=== PATIENT | male | born 1960 | race Native Hawaiian/Other Pacific Islander ===

== ENCOUNTER 2017-02-06 19:55 | Observation (INO) | payer OTHER ==
[2017-02-06] VITALS (7 sets, daily range): BP systolic 135–178; BP diastolic 70–103; PULSE 74–85; RESP 18; TEMP 98.5; O2SAT 98–99
[~2017-02-06] VITALS: Ht 165.1 cm; Wt 87.8 kg
[2017-02-06] MEDS ORDERED: ASPIRIN 81 MG CHEW TAB PO ONE (20:15)
[2017-02-06] MEDS ORDERED: SODIUM CHLORIDE 0.9% FLUSH 10 ML FLUSH IVF PRN ×2 (20:15→22:15)
--- NOTE | 2017-02-06 20:18 | PD ---
HPI Chief Complaint: Chest Pain Time Seen by Provider: 20:10 Travel History International Travel<30 days: No Contact w/Intl Traveler<30days: No Traveled to known affect area: No History of Present Illness HPI 56-year-old male presents to the emergency department from urgent care by private vehicle for evaluation of chest pressure and EKG with right bundle branch block pattern after being evaluated for complaint of persistent cough. Patient reports that he has no chest pain or chest pressure. Patient rates pain 0/10 in intensity. Patient denies shortness of breath or pleuritic pain. Patient has history of hypertension and admits to tobacco use. No bruit premature onset heart disease in his family and denies history of CAD, dyslipidemia, or diabetes. Patient reports developing respiratory illness and completed a course of amoxicillin but due to persistent symptoms was given a Z- Ian which she completed but had persistent cough so return to the urgent care because he continued to have cough and was not feeling well and noticed when he would rotate right or left while resting supine would develop midline chest discomfort when he was rotating or squeezing his chest wall. Patient denied any referred neck jaw fracture shoulder arm pain. No report of recent long distance travel or protracted bedrest or surgical procedure and denies lower extremity pain or swelling. Patient was given one 81 mg aspirin prior to being referred to the emergency department from the urgent care. [facility] Past Medical History Narrative Medical Hypertension; no surgery; tobacco use; family history no premature onset heart disease; Nursing notes reviewed Social History Tobacco Use: Yes Allergies-Medications (Allergen,Severity, Reaction): Coded Allergies: No Known Allergies (Unverified , 02/06/17) Reported Meds & Prescriptions Reported Meds & Active Scripts Active Reported Lisinopril 10 Mg Tab 10 Mg PO DAILY Narrative Medication Blood pressure medication once daily Review of Systems Except as stated in HPI: all other systems reviewed are Neg General / Constitutional: No: Fever, Chills HENT: Positive: Congestion Cardiovascular: Positive: Chest Pain or Discomfort (with movement or rotating the torso right to left or left to right), No: Palpitations, Diaphoresis, Syncope, Dyspnea on exertion, Edema Respiratory: Positive: Cough, No: Shortness of Breath, Wheezing, Pleuritic Pain Gastrointestinal: No: Nausea, Vomiting, Abdominal Pain Genitourinary: No: Flank Pain Musculoskeletal: No: Myalgias, Arthralgias, Cramping, Edema Skin: No Rash Neurologic: No: Weakness Psychiatric: No: Anxiety Endocrine: No: Heat Intolerance Hematologic/Lymphatic: No: Easy Bruising Physical Exam Narrative GENERAL: Well-developed well-nourished male in no acute distress no respiratory distress SKIN: Warm and dry. HEAD: Normocephalic. EYES: No scleral icterus. No injection or drainage. NECK: Supple, trachea midline. No JVD or lymphadenopathy. CARDIOVASCULAR: Regular rate and rhythm without murmurs, gallops, or rubs. RESPIRATORY: Breath sounds equal bilaterally. No accessory muscle use. GASTROINTESTINAL: Abdomen soft, non-tender, nondistended. MUSCULOSKELETAL: No cyanosis, or edema. Bilateral radial and dorsalis pedis pulses 2+ to palpation. BACK: Nontender without obvious deformity. No CVA tenderness. Data Data Last Documented VS Vital Signs Date Time Temp Pulse Resp B/P Pulse Ox O2 Delivery O2 Flow Rate FiO2 02/06/17 22:04 76 18 150/86 98 Room Air 02/06/17 20:10 98.5 Orders Electrocardiogram (02/06/17 20:10) Basic Metabolic Panel (Bmp) (02/06/17 20:10) B-Type Natriuretic Peptide (02/06/17 20:10) Ckmb (Isoenzyme) Profile (02/06/17 20:10) Complete Blood Count With Diff (02/06/17 20:10) Magnesium (Mg) (02/06/17 20:10) Prothrombin Time / Inr (Pt) (02/06/17 20:10) Act Partial Throm Time (Ptt) (02/06/17 20:10) Troponin I (02/06/17 20:10) Chest, Single Ap (02/06/17 20:10) Ecg Monitoring (02/06/17 20:10) Bilateral Bp Monitoring (02/06/17 20:10) Iv Access Insert/Monitor (02/06/17 20:10) Oximetry (02/06/17 20:10) Oxygen Administration (02/06/17 20:10) Aspirin Chew (Aspirin Chew) (02/06/17 20:15) Sodium Chloride 0.9% Flush (Ns Flush) (02/06/17 20:15) CKMB (02/06/17 20:30) CKMB% (02/06/17 20:30) D-Dimer (02/06/17 21:30) Admit Order (Ed Use Only) (02/06/17 ) ^ Saline Lock (02/06/17 22:13) Resp Oxygen Orestes C Titrat 1-4 L (02/06/17 ) Notify Dr: Other (02/06/17 22:13) Sodium Chloride 0.9% Flush (Ns Flush) (02/07/17 09:00) Sodium Chloride 0.9% Flush (Ns Flush) (02/06/17 22:15) Labs Laboratory Tests Test 02/06/17 20:30 White Blood Count 13.7 TH/MM3 Red Blood Count 5.23 MIL/MM3 Hemoglobin 15.5 GM/DL Hematocrit 45.5 % Mean Corpuscular Volume 86.9 FL Mean Corpuscular Hemoglobin 29.6 PG Mean Corpuscular Hemoglobin 34.1 % Concent Red Cell Distribution Width 12.8 % Platelet Count 358 TH/MM3 Mean Platelet Volume 7.8 FL Neutrophils (%) (Auto) 50.6 % Lymphocytes (%) (Auto) 35.6 % Monocytes (%) (Auto) 10.0 % Eosinophils (%) (Auto) 2.1 % Basophils (%) (Auto) 1.7 % Neutrophils # (Auto) 6.9 TH/MM3 Lymphocytes # (Auto) 4.9 TH/MM3 Monocytes # (Auto) 1.4 TH/MM3 Eosinophils # (Auto) 0.3 TH/MM3 Basophils # (Auto) 0.2 TH/MM3 CBC Comment DIFF FINAL Differential Comment Prothrombin Time 10.5 SEC Prothromb Time International 1.0 RATIO Ratio Activated Partial 26.5 SEC Thromboplast Time D-Dimer Quantitative (PE/DVT) 0.41 MG/L FEU Sodium Level 141 MEQ/L Potassium Level 4.2 MEQ/L Chloride Level 105 MEQ/L Carbon Dioxide Level 24.5 MEQ/L Anion Gap 12 MEQ/L Blood Urea Nitrogen 17 MG/DL Creatinine 0.95 MG/DL Estimat Glomerular Filtration 82 ML/MIN Rate Random Glucose 96 MG/DL Calcium Level 9.3 MG/DL Magnesium Level 2.2 MG/DL Total Creatine Kinase 274 U/L Creatine Kinase MB 2.1 NG/ML Troponin I LESS THAN 0.02 NG/ML B-Type Natriuretic Peptide 10 PG/ML MDM Medical Decision Making Medical Screen Exam Complete: Yes Emergency Medical Condition: Yes Medical Record Reviewed: Yes Interpretation(s) EKG normal sinus rhythm rate 86 right bundle branch block with age- indeterminate inferior infarct noted; no change from ekg provided from urgent care Differential Diagnosis Chest pain, ACS, myocardial infarction, PE, CHF, pneumonia Narrative Course Patient placed on spanish tutor IV access obtained EKG performed which shows sinus rhythm rate 86 right bundle block with QRS inferiorly for inferior infarct age indeterminate; patient administered aspirin 162 mg by mouth; patient 's complaint of discomfort/pain 0/10 no nitroglycerin administered at this time. Cardiac risks: male, age 56yrs, htn, and tobacco use. During iv access insertion patient experienced a vasovagal episode which responded well to resting patient supine. @ 8:45 PM VS w/i normal range; pain 0/10' patient voicing no complaints --- reports waiting on tests Hillary Baer MD Feb 06, 2017 20:18 Hillary Baer MD Feb 06, 2017 20:18
[2017-02-06 20:52] LABS: AUTOMATED NEUTROPHIL # 6.9 TH/MM3 (1.8-7.7); BASOPHIL # 0.2 TH/MM3 (0-0.2); BASOPHIL % 1.7 % (0.0-2.0); EOSINOPHIL # 0.3 TH/MM3 (0-0.4); EOSINOPHIL % 2.1 % (0.0-4.0); HEMATOCRIT 45.5 % (39.0-51.0); HEMO FLAGS DIFF FINAL; LYMPH % 35.6 % (9.0-44.0); LYMPHOCYTE # 4.9 TH/MM3 (1.0-4.8); MEAN CELL VOLUME 86.9 FL (80.0-100.0); MEAN CORPUSCULAR HEMOGLOBIN 29.6 PG (27.0-34.0); MEAN CORPUSCULAR HGB CONC 34.1 % (32.0-36.0); NEUT % 50.6 % (16.0-70.0); PLATELET COUNT 358 TH/MM3 (150-450); RED BLOOD COUNT 5.23 MIL/MM3 (4.50-5.90); RED CELL DISTRIBUTION WIDTH 12.8 % (11.6-17.2); WHITE BLOOD COUNT 13.7 TH/MM3 (4.0-11.0)
--- NOTE | 2017-02-06 20:58 | RADHPO ---
EXAM DATE/TIME: 02/06/2017 20:47 [facility] COMPARISON: No previous studies available for comparison. INDICATIONS : Chest pain. MEDICAL HISTORY : Hypertension. SURGICAL HISTORY : None. ENCOUNTER: Initial ACUITY: 1 day PAIN SCORE: 3/10 LOCATION: Bilateral chest FINDINGS: A single view of the chest demonstrates the lungs to be symmetrically aerated without evidence of mas s, infiltrate or effusion. The cardiomediastinal contours are unremarkable. Osseous structures are intact. CONCLUSION: No acute disease. Scott Cotter MD on February 06, 2017 at 20:55 Board Certified Radiologist. This report was verified electronically.
[2017-02-06 21:01] LABS: CHLORIDE 105 MEQ/L (98-107); SODIUM (NA) 141 MEQ/L (136-145)
[2017-02-06] MEDS ORDERED: LISI10TA3 PO (21:03)
[2017-02-06 21:04] LABS: ANION GAP 12 MEQ/L (5-15); BICARBONATE 24.5 MEQ/L (21.0-32.0); BLOOD UREA NITROGEN 17 MG/DL (7-18); MAGNESIUM 2.2 MG/DL (1.5-2.5)
[2017-02-06 21:07] LABS: POTASSIUM 4.2 MEQ/L (3.5-5.1)
[2017-02-06 21:08] LABS: APTT (PATIENT) 26.5 SEC (24.3-30.1); GLOMERULAR FILTRATION RATE 82 ML/MIN (>89); PROTHROMBIN TIME - PATIENT 10.5 SEC (9.8-11.6)
[2017-02-06 21:11] LABS: CREATINE KINASE 274 U/L (39-308)
[2017-02-06 21:23] LABS: CKMB 2.1 NG/ML (0.5-3.6)
[2017-02-07 00:15] VITALS: PULSE 77
[2017-02-07 00:30] VITALS: BP 129/86; PULSE 80; RESP 28; TEMP 96.9; O2SAT 97
[2017-02-07] MEDS ORDERED: MORPHINE SULFATE 4 MG/ML INJ IV PRN (01:00)
[2017-02-07] MEDS ORDERED: ALPRAZolam 0.25 MG TAB PO PRN (01:00)
[2017-02-07] MEDS ORDERED: ACETAMINOPHEN/HYDROcodone 325 MG/7.5 MG TAB PO PRN (01:00)
[2017-02-07] MEDS ORDERED: ACETAMINOPHEN 500 MG CPLT PO PRN (01:00)
[2017-02-07] MEDS ORDERED: ONDANSETRON HCL 4 MG/2 ML VIAL IV PRN (01:00)
[2017-02-07] MEDS ORDERED: NITROGLYCERIN 0.4 MG SL 25 TABS/BTL SL PRN (01:00)
[2017-02-07] MEDS ORDERED: SODIUM CHLORIDE 0.9% FLUSH 10 ML FLUSH IV FLUSH PRN (01:00)
[2017-02-07 02:02] LABS: CREATINE KINASE 216 U/L (39-308)
[2017-02-07 02:15] LABS: CKMB 1.5 NG/ML (0.5-3.6)
[2017-02-07 04:00] VITALS: BP 139/87; PULSE 76; RESP 19; TEMP 96.8; O2SAT 97
[2017-02-07 04:41] LABS: CREATINE KINASE 188 U/L (39-308)
[2017-02-07 04:54] LABS: CKMB 1.7 NG/ML (0.5-3.6)
--- NOTE | 2017-02-07 07:15 | HHI.HP ---
[facility] Service [facility] Hospital[facility] Primary Care Physician Unknown Admission Diagnosis chest pain Diagnoses: (1) Chest pain Diagnosis: Principal (2) Right bundle branch block Diagnosis: Principal (3) Leukocytosis Diagnosis: Principal (4) Hypertension Diagnosis: Secondary Chief Complaint: Chest pain Travel History International Travel<30 Days: No Contact w/Intl Traveler <30 Da: No Traveled to Known Affected Are: No History of Present Illness 56-year-old male with known history of hypertension, tobacco use who presented to hospital at the request of urgent care because of chest pain and EKG abnormalities. Patient states that his symptoms started approximate 2 weeks ago when he started having fever cough, congestion. Dr. Hopkins is a friend of the family and recommended he get evaluated. The patient went to an urgent care and was prescribed a Z-Ian. After taking the medication he indicates that his fever went away, however he continued to have cough with phlegm production. Because the patient continues to have cough, phlegm production and chest discomfort he spoke with Dr. Evans who recommended the patient go to urgent care for evaluation. Patient had workup done there and his EKG showed right bundle branch block and inferior T-wave abnormalities. Patient was recommended to come to emergency department for evaluation. Patient states that he was having lower midsternal heaviness 3/10 on a pain scale. Patient states that the pain was antagonized whenever he twisted and moved his upper body. He denied any pain radiation to his neck, back, shoulder, arm. Denied any nausea, vomiting, diaphoresis, shortness of breath, dyspnea, lightheadedness, dizziness. The patient has not had any previous cardiac workup. At the present time, the patient is asymptomatic. Patient was recommended observation chest pain center. Review of Systems Constitutional: DENIES: Diaphoretic episodes, Fatigue, Fever, Weight gain, Weight loss, Chills, Dizziness, Change in appetite, Night Sweats Eyes: DENIES: Blurred vision, Diplopia, Eye inflammation, Eye pain, Vision loss , Double Vision Ears, nose, mouth, throat: DENIES: Vertigo, Nasal discharge, Throat pain, Ear Pain, Running Nose, Sinus Pain Respiratory: COMPLAINS OF: Cough, Sputum production, DENIES: Apneas, Snoring, Wheezing, Hemoptysis, Shortness of breath Cardiovascular: COMPLAINS OF: Chest pain, DENIES: Palpitations, Syncope, Dyspnea on Exertion, Lower Extremity Edema, Orthopnea Gastrointestinal: DENIES: Abdominal pain, Black stools, Bloody stools, Constipation, Diarrhea, Nausea, Vomiting, Difficulty Swallowing, Anorexia Neurologic: DENIES: Abnormal gait, Headache, Localized weakness, Paresthesias, Seizures, Speech Problems, Tremor, Poor Balance Past Family Social History Past Medical History Hypertension Tobacco use Past Surgical History No previous surgeries Reported Medications Reported Meds & Active Scripts Active Reported Lisinopril 10 Mg Tab 10 Mg PO DAILY Allergies: Coded Allergies: No Known Allergies (Unverified , 02/06/17) Family History Reviewed and unremarkable for any family history of heart disease, diabetes Social History Patient quit smoking 2 weeks ago, prior to that he smoked up to 8 cigarettes a day since he was 17 years old. Patient has any alcohol or illicit drugs Physical Exam Vital Signs Vital Signs Date Time Temp Pulse Resp B/P Pulse Ox O2 Delivery O2 Flow Rate FiO2 02/07/17 04:00 96.8 76 19 139/87 97 02/07/17 00:30 96.9 80 28 129/86 97 02/07/17 00:15 77 02/06/17 23:47 83 18 135/70 99 02/06/17 23:40 98 21 02/06/17 22:04 76 18 150/86 98 Room Air 02/06/17 22:04 76 18 98 Room Air 02/06/17 20:58 74 18 136/87 98 Room Air 02/06/17 20:56 79 18 178/93 98 Room Air 170/103 02/06/17 20:14 18 99 Room Air 02/06/17 20:14 99 Room Air 02/06/17 20:14 85 18 99 Room Air 02/06/17 20:10 98.5 85 18 173/93 99 Physical Exam GENERAL: Well-developed, well-nourished, in no acute distress. alert and orientated HEENT: Head is normocephalic without any lesions or masses noted. Facial features are symmetric. Eyes: Pupils equal round reactive to light. Extraocular muscles are intact. Conjunctivae were clear. Oropharyngeal: Pharynx without any erythema edema. Tongue is midline without deviation. Buccal mucosa is moist without any masses or lesions NECK: Supple without any masses. Trachea midline no deviation. No JVD, no bruits are appreciated CARDIAC: Regular rhythm, regular rate. S1/S2 are heard. No murmurs gallops or rubs. LUNGS: Clear to auscultation bilaterally. No wheeze, rhonchi or rales. No use of accessory muscles on inspiration or expiration. ABDOMEN: Soft, nontender. Nondistended. Bowel sounds heard in all 4 quadrants. No organomegaly or masses. Negative rebound, negative guarding EXTREMITIES: No edema, pulses are equal bilaterally. No cyanosis or clubbing NEUROLOGY: Mood and affect appear appropriate. Cranial nerves II through XII grossly intact. Muscle strength 5/5 in upper and lower extremities bilaterally. Deep tendon reflexes are 2+ in upper and lower extremities bilaterally. Laboratory Laboratory Tests Test 02/06/17 02/07/17 02/07/17 20:30 01:20 04:10 White Blood Count 13.7 Red Blood Count 5.23 Hemoglobin 15.5 Hematocrit 45.5 Mean Corpuscular Volume 86.9 Mean Corpuscular Hemoglobin 29.6 Mean Corpuscular Hemoglobin 34.1 Concent Red Cell Distribution Width 12.8 Platelet Count 358 Mean Platelet Volume 7.8 Neutrophils (%) (Auto) 50.6 Lymphocytes (%) (Auto) 35.6 Monocytes (%) (Auto) 10.0 Eosinophils (%) (Auto) 2.1 Basophils (%) (Auto) 1.7 Neutrophils # (Auto) 6.9 Lymphocytes # (Auto) 4.9 Monocytes # (Auto) 1.4 Eosinophils # (Auto) 0.3 Basophils # (Auto) 0.2 CBC Comment DIFF FINAL Differential Comment Prothrombin Time 10.5 Prothromb Time International 1.0 Ratio Activated Partial 26.5 Thromboplast Time D-Dimer Quantitative (PE/DVT) 0.41 Sodium Level 141 Potassium Level 4.2 Chloride Level 105 Carbon Dioxide Level 24.5 Anion Gap 12 Blood Urea Nitrogen 17 Creatinine 0.95 Estimat Glomerular Filtration 82 Rate Random Glucose 96 Calcium Level 9.3 Magnesium Level 2.2 Total Creatine Kinase 274 216 188 Creatine Kinase MB 2.1 1.5 1.7 Troponin I LESS THAN 0.02 LESS THAN 0.02 LESS THAN 0.02 B-Type Natriuretic Peptide 10 Result Diagram: 02/06/17202902/06/172029 Imaging Last Impressions Chest X-Ray 02/06/172009 Signed Impressions: Service Date/Time: Monday, February 06, 2017 20:47 - CONCLUSION: No acute disease. Scott Cotter MD Assessment and Plan Problem List: (1) Chest pain ICD Code: R07.9 Status: Acute (2) Right bundle branch block ICD Code: I45.10 Status: Acute (3) Hypertension ICD Code: I10 Status: Acute (4) Leukocytosis ICD Code: D72.829 Status: Acute Assessment and Plan Chest pain with right bundle branch block: Patient with increased risk factors to include age, hypertension, tobacco use. Patient been ruled out for acute coronary event with serial cardiac enzymes which are negative, serial EKG showed right bundle branch block, inferior T-wave abnormality without any acute changes. Chest x-ray does not indicate any acute abnormality. Embolic event has been ruled out with d-dimer which was normal. Stress test was performed which did not indicate any underlying ischemia with low risk factor. Continue aspirin, nitroglycerin as needed. [place] and morphine for pain control Leukocytosis: Unknown etiology this time. Patient recently treated for upper respiratory infection. Improving. Continue follow CBC Hypertension: Continue home medications DVT prevention: Low risk, early ambulation Written by Dylon Godinez, acting as scribe for Dr. Nicholas on 02/07/17 at 10: 19. This note was transcribed by scribe Dylon Godinez. I, Dr. Chaka Nicholas personally performed the history, physical exam, and medical decision making; and confirmed the accuracy of the information in the transcribed note. Authenticated by Dr. Chaka Nicholas on 02/07/17 at 15:50. Discharge disposition Discharge home in stable condition Activity: Ad louie. Diet: Healthy heart diet Medications per medication reconciliation Follow-up primary medical doctor in one week Problem Qualifiers (1) Hypertension: Qualified Code: I15.9 - Secondary hypertension Dylon Godinez Feb 07, 2017 07:15 Chaka Nicholas MD Feb 07, 2017 15:51
[2017-02-07 08:00] VITALS: BP 130/85; PULSE 68; PULSE 80; RESP 20; TEMP 96.9; O2SAT 96
[2017-02-07 08:29] VITALS: O2SAT 97
[2017-02-07 08:44] LABS: AUTOMATED NEUTROPHIL # 6.9 TH/MM3 (1.8-7.7); BASOPHIL # 0.1 TH/MM3 (0-0.2); BASOPHIL % 0.6 % (0.0-2.0); EOSINOPHIL # 0.3 TH/MM3 (0-0.4); EOSINOPHIL % 2.2 % (0.0-4.0); HEMATOCRIT 47.3 % (39.0-51.0); LYMPH % 32.1 % (9.0-44.0); MEAN CELL VOLUME 86.7 FL (80.0-100.0); MEAN CORPUSCULAR HEMOGLOBIN 28.9 PG (27.0-34.0); MEAN CORPUSCULAR HGB CONC 33.3 % (32.0-36.0); MONO % 9.7 % (0.0-8.0); NEUT % 55.4 % (16.0-70.0); PLATELET COUNT 402 TH/MM3 (150-450); RED BLOOD COUNT 5.46 MIL/MM3 (4.50-5.90); WHITE BLOOD COUNT 12.5 TH/MM3 (4.0-11.0)
[2017-02-07 08:48] LABS: HEMO FLAGS AUTO DIFF
[2017-02-07] MEDS ORDERED: ASPIRIN 325 MG TAB PO SCH (09:00)
[2017-02-07] MEDS ORDERED: SODIUM CHLORIDE 0.9% FLUSH 10 ML FLUSH IV FLUSH SCH (09:00)
[2017-02-07] MEDS ORDERED: LISINOPRIL 10 MG TAB PO SCH (09:00)
[2017-02-07] MEDS ORDERED: SODIUM CHLORIDE 0.9% FLUSH 10 ML FLUSH SCH (09:00)
[2017-02-07 09:21] LABS: SCAN/DIFF AUTO DIFF CONFIRMED
[2017-02-07] MEDS ORDERED: REGADENOSON INJ 0.4 MG/5 ML SYR IV ONE (10:36)
[2017-02-07 12:00] VITALS: BP 149/82; PULSE 79; RESP 20; TEMP 97; O2SAT 95
--- NOTE | 2017-02-07 12:02 | RADHPO ---
EXAM DATE/TIME: 02/07/2017 10:37 [facility] COMPARISON: CHEST SINGLE AP, February 06, 2017, 20:47. INDICATIONS : Chest pressure. Abnormal EKG. DOSE: 26.7 mCi Tc99m Myoview at stress. 8.7 mCi Tc99m Myoview at rest. 0.4 mg Lexiscan STRESS SYMPTOMS: Chest heaviness. EJECTION FRACTION: > 70% MEDICAL HISTORY : Hypertension. Smoker. SURGICAL HISTORY : None. ENCOUNTER: Initial ACUITY: 1 day PAIN SCALE: 0/10 LOCATION: chest TECHNIQUE: The patient underwent pharmacologic stress with infusion of prescribed dose. Continuous ECG tracing was monitored during stress. Gated SPECT imaging was performed after stress and conventional SPECT i maging was performed at rest. The examination was performed on a SPECT/CT scanner, both attenuation and non-corrected datasets were reviewed. FINDINGS: DISTRIBUTION: The maximum perfused segment at stress is in the anterolateral wall. PERFUSION STUDY: The pattern of perfusion at stress is within normal limits with diaphragmatic attenuation in the post erior basal region without any significant ischemia. GATED STUDY: There is intact wall motion and thickening without hypokinetic or dyskinetic segments. CONCLUSION: No appreciable ischemia. RISK CATEGORY: Low (<1% Annual Mortality Rate) Connor Singh MD on February 07, 2017 at 11:59 Board Certified Radiologist. This report was verified electronically.
--- NOTE | 2017-02-07 12:09 | TR ---
Date Performed: 02/07/2017 Time Performed: 11:00:56 DOCTOR: Vincent Freed DRUG LIST: CLINICAL HISTORY: REASON FOR TEST: Chest pain REASON FOR ENDING: OBSERVATION: CONCLUSION: Lexiscan stress test was performed under standard four minute protocol. Radionucl[place] e was injected one minute prior to ending the test. No electrocardiographic abormalities were present to suggest ischemia. Nuclear imaging and interpretation are pending. COMMENTS:
--- NOTE | 2017-02-07 12:17 | HHI.DCPOC ---
Discharge Care Plan Diagnosis: (1) Chest pain Goals to Promote Your Health * To prevent worsening of your condition and complications * To maintain your health at the optimal level Directions to Meet Your Goals Take your medications as prescribed Follow your dietary instruction Follow activity as directed Keep your appointments as scheduled Take your immunizations and boosters as scheduled If your symptoms worsen call your PCP, if no PCP go to Urgent Care Center or Emergency Room Smoking is Dangerous to Your Health. Avoid second hand smoke Call the 24-hour hour crisis hotline for domestic abuse at Dylon Godinez Feb 07, 2017 12:17
--- NOTE | 2017-02-07 14:31 | EKG ---
Date Performed: 02/07/2017 Time Performed: 03:54:24 PTAGE: 56 years EKG: Sinus rhythm Right bundle branch block Inferior T wave changes are nonspecific Abnormal ECG PREVIOUS TRACING : 02/07/2017 01.16 Since previous tracing, no significant change noted DOCTOR: Vincent rFeed Interpretating Date/Time 02/07/2017 14:30:11
--- NOTE | 2017-02-07 14:31 | EKG ---
Date Performed: 02/07/2017 Time Performed: 01:16:20 PTAGE: 56 years EKG: Sinus rhythm Right bundle branch block Inferior T wave changes are nonspecific Abnormal ECG PREVIOUS TRACING : 02/06/2017 19.58 Since previous tracing, no significant change noted DOCTOR: Vincent Freed Interpretating Date/Time 02/07/2017 14:30:30
--- NOTE | 2017-02-07 14:42 | EKG ---
Date Performed: 02/06/2017 Time Performed: 19:58:28 PTAGE: 56 years EKG: Sinus rhythm Right bundle branch block small inferior Q waves of unknown importance Abnormal ECG NO PREVIOUS TRACING DOCTOR: Vincent Freed Interpretating Date/Time 02/07/2017 14:41:38
== END 2017-02-07 14:03 | disposition home or self-care (01) ==
LOC: PHED 19:55 → PHEDA 22:14 → PH3A 23:41
PROVIDERS: ADMIT Internal Medicine; ATTEND Internal Medicine
DX: R07.9 Chest pain, unspecified (principal); I10 Essential (primary) hypertension; I45.10 Unspecified right bundle-branch block; D72.829 Elevated white blood cell count, unspecified; F17.210 Nicotine dependence, cigarettes, uncomplicated
CPT/HCPCS: 71010; 78452; 80048; 82550; 82552; 83735; 83880; 84484; 85025; 85379; 85610; 85730; 93005; 93017; 99285; A9502; G0378; J2785

== ENCOUNTER 2017-02-18 14:32 | Emergency (ER) | payer OTHER ==
[~2017-02-18] VITALS: Ht 165.1 cm; Wt 88.6 kg
[~2017-02-18 14:32] MED LIST: LISI10TA3 PO
[2017-02-18 14:39] VITALS: BP 137/100; PULSE 103; RESP 16; TEMP 98.4; O2SAT 95
[2017-02-18 14:41] VITALS: BP 137/99; PULSE 103; RESP 16; TEMP 98.4; O2SAT 95
[2017-02-18] MEDS ORDERED: SODIUM CHLORIDE 0.9% FLUSH 10 ML FLUSH IVF PRN (15:00)
--- NOTE | 2017-02-18 15:01 | PD ---
HPI Chief Complaint: Cold / Flu Symptoms Time Seen by Provider: 14:58 Travel History International Travel<30 days: No Contact w/Intl Traveler<30days: No Traveled to known affect area: No History of Present Illness HPI Patient comes in complaining of cough and right-sided low thoracic pain with coughing that began 2 days ago. Patient denies any associated shortness of breath. Patient reports low-grade temperature yesterday. Patient states he has been taking leftover prednisone and Tessalon Perles as prescribed earlier this month from urgent care with minimal to no relief of his symptoms. Patient states he occasionally is coughing up phlegm. Denies any nausea, vomiting, diarrhea, abdominal pain, loss or change in bowel or bladder, or recent travel. Denies anything making his symptoms worse. PFSH Past Medical History Cardiovascular Problems: Yes (htn on meds) Diminished Hearing: No Hypertension: Yes Immunizations Current: Yes Influenza Vaccination: No Social History Alcohol Use: Yes Tobacco Use: Yes Substance Use: No Allergies-Medications (Allergen,Severity, Reaction): Coded Allergies: No Known Allergies (Unverified , 02/18/17) Reported Meds & Prescriptions Reported Meds & Active Scripts Active Naprosyn (Naproxen) 500 Mg Tab 500 Mg PO Q12HR PRN Ventolin Hfa 18 GM Inh (Albuterol Sulfate) 90 Mcg/Act Aer 2 Puff INH Q4H PRN Reported Lisinopril 10 Mg Tab 10 Mg PO DAILY Review of Systems Except as stated in HPI: all other systems reviewed are Neg Physical Exam Narrative GENERAL: Well-developed, overly nourished, in no acute distress, and non-ill appearing. SKIN: Focused skin assessment warm and dry. HEAD: Atraumatic. Normocephalic. EYES: Pupils equal and round. EOMI. No scleral icterus. No injection or drainage. ENT: No nasal bleeding or discharge. Mucous membranes pink and moist. NECK: Trachea midline. No JVD. Supple. No nuclear rigidity. CARDIOVASCULAR: Regular rate and rhythm. No murmur appreciated. RESPIRATORY: No accessory muscle use. No respiratory distress. Clear to auscultation. Breath sounds equal bilaterally. Dry hacking cough noted on exam. Patient speaking in full sentences without difficulty. GASTROINTESTINAL: Abdomen soft, non-tender, nondistended. Hepatic and splenic margins not palpable. No CVA tenderness. No pulsatile mass. MUSCULOSKELETAL: No obvious deformities. No clubbing. No cyanosis. No edema. Full range of motion. NEUROLOGICAL: Awake and alert. No obvious cranial nerve deficits. Motor grossly within normal limits. Normal speech. PSYCHIATRIC: Appropriate mood and affect; insight and judgment normal. Data Data Last Documented VS Vital Signs Date Time Temp Pulse Resp B/P Pulse Ox O2 Delivery O2 Flow Rate FiO2 02/18/17 15:12 18 95 Room Air 02/18/17 14:41 98.4 103 137/99 Orders Complete Blood Count With Diff (02/18/17 14:54) Basic Metabolic Panel (Bmp) (02/18/17 14:54) D-Dimer (02/18/17 14:54) Act Partial Throm Time (Ptt) (02/18/17 14:54) Prothrombin Time / Inr (Pt) (02/18/17 14:54) Iv Access Insert/Monitor (02/18/17 14:54) Ecg Monitoring (02/18/17 14:54) Oximetry (02/18/17 14:54) Chest, Single Ap (02/18/17 14:54) Sodium Chloride 0.9% Flush (Ns Flush) (02/18/17 15:00) Ct Pulmonary Angiogram (02/18/17 ) Iohexol 350 Inj (Omnipaque 350 Inj) (02/18/17 16:10) Ketorolac Inj (Toradol Inj) (02/18/17 16:45) Labs Laboratory Tests Test 02/18/17 15:10 White Blood Count 12.3 TH/MM3 Red Blood Count 4.90 MIL/MM3 Hemoglobin 14.3 GM/DL Hematocrit 41.8 % Mean Corpuscular Volume 85.3 FL Mean Corpuscular Hemoglobin 29.1 PG Mean Corpuscular Hemoglobin 34.2 % Concent Red Cell Distribution Width 12.4 % Platelet Count 378 TH/MM3 Mean Platelet Volume 8.1 FL Neutrophils (%) (Auto) 62.4 % Lymphocytes (%) (Auto) 23.1 % Monocytes (%) (Auto) 10.3 % Eosinophils (%) (Auto) 1.0 % Basophils (%) (Auto) 3.2 % Neutrophils # (Auto) 7.7 TH/MM3 Lymphocytes # (Auto) 2.8 TH/MM3 Monocytes # (Auto) 1.3 TH/MM3 Eosinophils # (Auto) 0.1 TH/MM3 Basophils # (Auto) 0.4 TH/MM3 CBC Comment DIFF FINAL Differential Comment Prothrombin Time 10.7 SEC Prothromb Time International 1.0 RATIO Ratio Activated Partial 29.0 SEC Thromboplast Time D-Dimer Quantitative (PE/DVT) 1.43 MG/L FEU Sodium Level 142 MEQ/L Potassium Level 4.0 MEQ/L Chloride Level 107 MEQ/L Carbon Dioxide Level 25.4 MEQ/L Anion Gap 10 MEQ/L Blood Urea Nitrogen 15 MG/DL Creatinine 1.10 MG/DL Estimat Glomerular Filtration 69 ML/MIN Rate Random Glucose 130 MG/DL Calcium Level 9.3 MG/DL MDM Medical Decision Making Medical Screen Exam Complete: Yes Emergency Medical Condition: Yes Differential Diagnosis Pneumonia, PE, bronchitis, pneumothorax, pleurisy, costochondritis, other Narrative Course The patient is non-ill appearing and is in no respiratory distress and comfortable. The patient moves air well and oxygen saturations are normal. Chest x-ray revealed no evidence of obvious consolidation of infiltrate. CTA shows no evidence of PE or pneumonia. There is no clinical evidence to suggest pneumonia at this time. Plan of care and management were discussed with the patient who agreed with plan. The patient was instructed to follow up with their physician and instructed to return if worsens, progressively worsening shortness of breath or difficulty breathing, persistent fever, chest pains or discomfort, inability to keep medication or fluids down with or without vomiting , or as needed. Patient in no obvious distress upon re-evaluation. All pertinent laboratory/ Radiology result(s) discussed with patient. Patient was asked if they wanted to speak to my attending, which the patient did not wish to do at this time. Any questions/concerns in reference to patient diagnosis/condition discussed and clarified prior to patient's discharge. Reinforced sheer importance of close follow up with patient's primary physician or primary care clinic. Instructed patient to return to ED immediately, if symptoms return/worsen. Pt showed understanding of above instructions. Further instructions and recommendations were detailed in discharge paperwork. Pt ambulated without difficulty out of ED at discharge thanking staff. Diagnosis Primary Impression: Cough Patient Instructions: Acute Cough (ED), General Instructions Additional Instructions: Follow-up with your primary care physician and/or vending technician in one to 5 days for reevaluation. Discuss with your primary care doctor possible changing your blood pressure medicine as this may be causing and/or contributing to your cough. Take all medication as prescribed. Return to the emergency department if symptoms get worse. Med/Other Pt SpecificInfo: Prescription(s) given Scripts Naproxen (Naprosyn)500 Mg [id number] Mg PO Q12HR PRN (PAIN SCALE 1 TO 10) #14 TAB Ref 0 Prov:Frankie Ibrahim MD 02/18/17 Albuterol 18 GM Inh (Ventolin Hfa 18 GM Inh)90 Mcg/Act Aer2 Puff INH Q4H PRN ( COUGH) #1 INHALER Ref 0 Prov:Frankie Ibrahim MD 02/18/17 Disposition: 01 DISCHARGE HOME Condition: Stable Eitan Perez Feb 18, 2017 15:01
[2017-02-18 15:12] VITALS: RESP 18; O2SAT 95
[2017-02-18 15:23] LABS: AUTOMATED NEUTROPHIL # 7.7 TH/MM3 (1.8-7.7); BASOPHIL # 0.4 TH/MM3 (0-0.2); BASOPHIL % 3.2 % (0.0-2.0); EOSINOPHIL # 0.1 TH/MM3 (0-0.4); HEMATOCRIT 41.8 % (39.0-51.0); HEMO FLAGS DIFF FINAL; LYMPH % 23.1 % (9.0-44.0); LYMPHOCYTE # 2.8 TH/MM3 (1.0-4.8); MEAN CELL VOLUME 85.3 FL (80.0-100.0); MEAN CORPUSCULAR HEMOGLOBIN 29.1 PG (27.0-34.0); MEAN CORPUSCULAR HGB CONC 34.2 % (32.0-36.0); MONO % 10.3 % (0.0-8.0); NEUT % 62.4 % (16.0-70.0); PLATELET COUNT 378 TH/MM3 (150-450); RED CELL DISTRIBUTION WIDTH 12.4 % (11.6-17.2); WHITE BLOOD COUNT 12.3 TH/MM3 (4.0-11.0)
[2017-02-18 15:29] LABS: BICARBONATE 25.4 MEQ/L (21.0-32.0)
[2017-02-18 15:32] LABS: PROTHROMBIN TIME - PATIENT 10.7 SEC (9.8-11.6)
--- NOTE | 2017-02-18 16:01 | RADHPO ---
EXAM DATE/TIME: 02/18/2017 15:02 [facility] COMPARISON: CHEST SINGLE AP, February 06, 2017, 20:47. INDICATIONS : Cough for 3 weeks. Chest pain since yesterday. MEDICAL HISTORY : Hypertension. SURGICAL HISTORY : None. ENCOUNTER: Initial ACUITY: 3 weeks PAIN SCORE: 8/10 LOCATION: Bilateral chest FINDINGS: A single view of the chest demonstrates the lungs to be symmetrically aerated without evidence of mas s, infiltrate or effusion. The cardiomediastinal contours are unremarkable. Osseous structures are intact. CONCLUSION: No acute disease. There is no evidence of pneumonia. Truong Lane MD on February 18, 2017 at 15:59 Board Certified Radiologist. This report was verified electronically.
[2017-02-18] MEDS ORDERED: IOHEXOL 350 MG/ML 10 ML VIAL (for RAD DIAG) IV ONE (16:10)
--- NOTE | 2017-02-18 16:20 | RADHPO ---
EXAM DATE/TIME: 02/18/2017 15:56 [facility] COMPARISON: CHEST SINGLE AP, February 18, 2017, 15:02. INDICATIONS : Cough and right sided back pain. IV CONTRAST: 80 cc Omnipaque 350 (iohexol) IV RADIATION DOSE: 19.33 CTDIvol (mGy) MEDICAL HISTORY : Hypertension. SURGICAL HISTORY : None. ENCOUNTER: Initial ACUITY: 2 days PAIN SCALE: 8/10 LOCATION: Right chest TECHNIQUE: Volumetric scanning of the chest was performed using a pulmonary embolism protocol MIP images were re constructed. Using automated exposure control and adjustment of the mA and/or kV according to patien t size, radiation dose was kept as low as reasonably achievable to obtain optimal diagnostic quality images. FINDINGS: PULMONARY ARTERIES: No filling defects are seen in the pulmonary arteries through the segmental level. LUNGS: There is no consolidation or pneumothorax . No concerning pulmonary nodule is visualized. PLEURAE: There is no pleural thickening or pleural effusion. MEDIASTINUM: There is good visualization of the great vessels of the middle mediastinum. No evidence of mediastin al or hilar adenopathy/mass. MUSCULOSKELETAL: Within normal limits for patient age. MISCELLANEOUS: The visualized upper abdominal organs demonstrate no acute abnormality. There is moderate steatosis o f the liver. CONCLUSION: Negative exam with no evidence of pulmonary emboli. The lungs are clear. Truong Lane MD on February 18, 2017 at 16:16 Board Certified Radiologist. This report was verified electronically.
[2017-02-18] MEDS ORDERED: VENTAER INH (16:24)
[2017-02-18] MEDS ORDERED: NAPR500 PO (16:32)
[2017-02-18] MEDS ORDERED: KETOROLAC TROMETHAMINE 30 MG/ML (IVP) VIAL IV PUSH ONE (16:45)
[2017-02-18 16:47] VITALS: BP 138/88
== END 2017-02-18 16:53 | disposition home or self-care (01) ==
LOC: PHEFT 14:32
DX: R05 Cough (principal); R50.9 Fever, unspecified; M54.6 Pain in thoracic spine; I10 Essential (primary) hypertension; Z72.0 Tobacco use
CPT/HCPCS: 71010; 71275; 80048; 85025; 85379; 85610; 85730; 96374; 99284; J1885; Q9967